=== PATIENT | male | born 1955 | race Two or more races ===

== ENCOUNTER 2018-05-13 19:07 | Emergency (ER) | payer SELFPAY ==
[~2018-05-13] VITALS: Ht 165.1 cm; Wt 65.8 kg
[2018-05-13 19:17] VITALS: BP 144/91
--- NOTE | 2018-05-13 19:17 | NUR ---
ED Nurse Note: Pt arrived ED from home, c/o Head injuried by hiting a objector today, which had a small laceration on head. Pt is A/O X4. Vital signs stable at this time, waiting for orders.
[2018-05-13] MEDS ORDERED: Tetanus/Diptheria/Pertussis Vaccine 0.5ml Syr IM ONE (19:30)
[2018-05-13] MEDS ORDERED: Bacitracin Oint UD TOPIC ONE (19:30)
--- NOTE | 2018-05-13 20:13 | NUR ---
ED Nurse Note: Pain meds and Tetanus given as ordered.
[2018-05-13] MEDS ORDERED: IBUPROFEN600 MG ORAL (20:45)
[2018-05-13] MEDS ORDERED: AUGMENTIN 875-1 EAC1 ORAL (20:45)
[2018-05-13] MEDS ORDERED: BACITRACIN-P28.35 GM TP (20:45)
--- NOTE | 2018-05-13 20:45 | Emergency Room Report ---
History of Present Illness General Chief Complaint: Laceration Source: Patient Present Illness HPI 62-year-old male patient presents the ER status post head trauma earlier this morning. 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 Reports some mild cut on the top of this time, bleeding well controlled. States does not know tetanus vaccination status. Denies loss of consciousness. Denies vomiting or vision changes. Denies photophobia or phonophobia. Denies neck pain. States not taking any medication for relief of symptoms. Denies other aggravating or relieving factors. Allergies: Coded Allergies: No Known Allergies (Unverified , 05/13/18) Patient History Past Medical History: see triage record Reviewed Nursing Documentation: PMH: Agreed; PSxH: Agreed Nursing Documentation-PMH Past Medical History: No Stated History Review of Systems All Other Systems: negative except mentioned in HPI Physical Exam Vital Signs Date Time Temp Pulse Resp B/P (MAP) Pulse Ox O2 Delivery O2 Flow Rate FiO2 05/13/18 19:12 98.4 85 12 149/92 95 Room Air Sp02 EP Interpretation: reviewed, normal General Appearance: well appearing, no apparent distress, alert, GCS 15, non- toxic Head: normocephalic, atraumatic, other - Negative temple sign, negative raccoon eyes, no skull depression, no hematoma ENT: hearing grossly normal, normal pharynx, no angioedema, normal voice, TMs + canals normal - Negative hemotympanum bilaterally, uvula midline, moist mucus membranes Neck: full range of motion, no bony tend Respiratory: lungs clear, normal breath sounds, no rhonchi, no respiratory distress, no accessory muscle use, no wheezing, speaking full sentences Cardiovascular #1: regular rate, rhythm, no edema Musculoskeletal: back normal, digits/nails normal, gait/station normal, normal range of motion, non-tender Neurologic: alert, oriented x3, responsive, marquetry worker III-XII nml as tested, motor strength/tone normal, sensory intact, cerebellar normal, normal gait, speech normal Skin: abrasions - 2 cm linear abrasion on top of scalp, no laceration, no active bleeding, no surrounding erythema or edema Medical Decision Making PA Attestation Dr. Aquino is my supervising Physician whom patient management has been discussed with. Diagnostic Impression: Primary Impression: Head injury, acute Additional Impressions: Sinusitis Abrasion ER Course Pt presents to ED c/o laceration on posterior scalp s/p fall. DDX considered but are not limited to laceration, abrasion, contusion, cellulitis, ICH, skull fracture. Ordered CT of head to rule out acute pathology. VITAL SIGNS are WNL, patient is afebrile Ordered CT head, lidocaine, TDap. ED INTERVENTIONS: Provide with pain medication. TDAP provided. Cranial nerves intact as tested, no focal neuro deficits. Wound cleaned and covered using sterile Bacitracin. No laceration requiring repair. keep clean and dry. CT head negative for acute abnormalities, mild atrophy of brain, pansinusitis. Discussed results with patient. Follow-up with primary care provider to discuss further treatment and referral to neurologist. Will provide patient with antibiotics for pansinusitis. Advised on use of Claritin and Benadryl [id number]. Take Motrin for pain. Patient OK for discharge to home. Patient resting comfortably, in no acute distress, nontoxic appearing. DISCHARGE: At this time pt is stable for d/c to home. Patient resting comfortably, in no acute distress, nontoxic appearing, talking without difficulty. Will provide with patient care instructions and any necessary prescriptions. Patient to take medication as instructed. Care plan and follow-up instructions provided. Patient questions asked and answered. Patient reports understanding and agreement to treatment plan. Patient instructed to followup with PCP to discuss further treatment plan. ER precautions given. Patient instructed to return to ER immediately for any new or worsening of symptoms. - Please note that this Emergency Department Report was dictated using [employer] sales professional technology software, occasionally this can lead to erroneous entry secondary to interpretation by the dictation equipment. CT/MRI/US Diagnostic Results CT/MRI/US Diagnostic Results : Imaging Test Ordered: CT head Impression No acute abnormalities, mild atrophy of brain, pansinusitis Last Vital Signs Date Time Temp Pulse Resp B/P (MAP) Pulse Ox O2 Delivery O2 Flow Rate FiO2 05/13/18 19:12 98.4 85 12 149/92 95 Room Air Status: improved Disposition: HOME, SELF-CARE Condition: Stable Scripts Ibuprofen* (MOTRIN*) 600 Mg Tablet 600 MG ORAL Q8H PRN for For Pain, #30 TAB 0 Refills Prov: Ender Jacome 05/13/18 Bacitracin/Polymyxin B Sulfate (BACITRACIN-POLYMYXIN OINTMENT) 28.35 Gm Oint...g. 1 APPLIC TP BID, #28 GM Prov: Ender Jacome 05/13/18 Amoxicillin/Potassium Clav 875-125* (AUGMENTIN 875-125 TABLET*) 1 Each Tablet 1 TAB ORAL TWICE A DAY for 7 Days, #14 TAB Prov: Ender Jacome 05/13/18 Referrals: NOT CHOSEN IPA/MD,REFERRING (PCP) Patient Instructions: Abrasion, [id number], Head Injury, Adult, [id number] , Sinusitis, Adult, [id number] Additional Instructions: Follow up with primary care physician in 1 - 2 days. If you experience loss of consciousness, vision loss or intractable vomiting, return to ED immediately. Avoid screen time. Drink plenty of fluids. Avoid alcohol/drug use, rest. Keep abrasion clean and dry, apply bacitracin to help reduce appearance of scar and prevent infection. Follow-up with neurology to discuss CT results. Follow-up with ENT for sinusitis. Take medications as directed. Patient questions asked and answered. ER precautions given, patient instructed to return to ER immediately for any new or worsening of symptoms. Ender Jacome May 13, 2018 20:45
--- NOTE | 2018-05-13 20:52 | NUR ---
ER DISCHARGE NOTE: Patient is cleared to be discharged per ERMD, pt is aox4, on room air, with stable vital signs. Accompanied by parent. pt was given dc and prescription instructions, pt was able to verbalize understanding, pt id band removed. pt is able to ambulate with provided crutches; verbalized and demonstrated how to use crutches. pt took all belongings.
[2018-05-14 01:50] VITALS: BP 137/86
--- NOTE | 2018-05-14 01:50 | NUR ---
Note glenone in EDM - 05/14/18 at 0542 by JANINE ER DISCHARGE NOTE: Patient is cleared to be discharged per ERMD, pt is aox4, on room air, with stable vital signs. Accompanied by parent. pt was given dc and prescription instructions, pt was able to verbalize understanding, pt id band removed. pt is able to ambulate with provided crutches; verbalized and demonstrated how to use crutches. pt took all belongings.
--- NOTE | 2018-05-14 09:50 | Diagnostic Imaging Report ---
Indications: Head laceration due to metal object hitting head, head pain Technique: Spiral acquisitions obtained through the brain. Angled axial and coronal 5 x 5 mm slices were reconstructed. Total dose length product 1397.2 mGycm. CTDI vol(s) 70.38 mGy. Dose reduction achieved using automated exposure control Comparison: None. Findings: No evidence of acute calvarial injury. There is maxillary and ethmoid sinus disease. No acute intracranial hemorrhage nor edema, mass effect, nor midline shift. Normal wise-white differentiation. There is mild age-related volume loss Impression: Mild age-related volume loss No acute intracranial bleed or mass effect Sinus disease This agrees with the preliminary interpretation provided overnight by Dr. Pulido The CT scanner at [facility] is accredited by the [employer] and the scans are performed using protocols designed to limit radiation exposure to as low as reasonably achievable to attain images of sufficient resolution adequate for diagnostic evaluation.
== END 2018-05-13 20:52 | disposition home or self-care (01) ==
LOC: EMR 19:56
DX: S09.90XA Unspecified injury of head, initial encounter (principal); S00.01XA Abrasion of scalp, initial encounter; J32.4 Chronic pansinusitis; W20.8XXA Other cause of strike by thrown, projected or falling object, initial encounter; Y92.9 Unspecified place or not applicable; Z23 Encounter for immunization
CPT/HCPCS: 70450; 90471; 90715; 99284